=== PATIENT | female | born 1985 | race Caucasian/White ===

== ENCOUNTER 2024-05-04 15:03 | Emergency (ER) | payer BC, SELFPAY ==
[2024-05-04 15:15] VITALS: BP 155/99; PULSE 93; RESP 18; TEMP 36.6; O2SAT 97; BMI 37.3
--- NOTE | 2024-05-04 15:15 | ED_ITS ---
Discharge Plan Disposition Patient Disposition: Home, Self-Care Condition: Good Prescriptions Prescriptions: New azithromycin [Zithromax] 250 mg tablet 250 mg PO UD DOSE PK Qty: 6 0RF Rx Instructions: Take two (2) tablets today, then one (1) tablet days #2 thru #5 benzonatate 100 mg capsule 100 mg PO TIDP PRN (Reason: Cough) Qty: 30 0RF methylprednisolone 4 mg Tablets,Dose Pack 4 mg PO DIRECTED 6 Days Qty: 21 0RF Rx Instructions: Take 1 pack as directed for 6 days No Action lisinopril 40 mg Tablet 40 mg PO DAILY Ozempic 0.25 mg or 0.5 mg(2 mg/1.5 mL) Pen Injector 1 mg SQ WEEKLY Referrals Follow up/Referrals: Provider,Referral, MD [Primary Care Provider] - See instructions Activity Restrictions/Add. Instructions Additional Instructions/Restrictions: Drink plenty of fluids. Take tylenol or ibuprofen for pain or fever. Take the medications as directed. Follow up with your regular doctor. GO TO THE ER FOR ANY WORSENING SYMPTOMS Clinical Impressions Clinical Impression: Sinusitis Instructions Patient Instructions: Sinusitis, DI for Sinusitis Print Language Print Language: Nicarag[place] Discharge ED Provider: Herber Whitman [facility] General Stated complaint: congestion, runny nose Time Seen by Provider: 05/04/24 15:15 History of Present Illness Provider Complaint: She states that for the past 2 weeks she has had sinus congestion and a cough. Related Data Home Medications ?Medication ?Instructions ?Recorded ?Confirmed lisinopril 40 mg tablet 40 mg PO DAILY 05/04/24 05/04/24 semaglutide 0.25 mg or 0.5 mg (2 1 mg SQ WEEKLY 05/04/24 05/04/24 mg/1.5 mL) subcutaneous pen injector (Ozempic) Previous Rx's ?Medication ?Instructions ?Recorded azithromycin 250 mg tablet 250 mg PO UD DOSE PK #6 tabs 05/04/24 (Zithromax) benzonatate 100 mg capsule 100 mg PO TIDP PRN Cough #30 caps 05/04/24 methylprednisolone 4 mg tablets in 4 mg PO DIRECTED 6 days #21 tabs 05/04/24 a dose pack Allergies Allergy/AdvReac Type Severity Reaction Status Date / Time No Known Allergies Allergy Verified 05/04/24 15:17 [facility] Disclaimer: The information contained in this section may have been updated after the patient was seen, as this information can be updated by other users. Medical History (Updated 05/04/24 @ 15:33 by Herber Whitman APRN) HTN (hypertension) Diabetes Social History Smoking Status: Never smoker alcohol intake: never current occupational status: employed Travel in the last 8 weeks: None ROS Obtained: Yes All systems reviewed & no additional complaints except as documented Constitutional Constitutional: Reports poor appetite Eyes Eyes: Reports system reviewed and no additional complaints, except as documented ENT Ears, Nose, Mouth, and Throat: Reports as per HPI Cardiovascular Cardiovascular: Reports system reviewed and no additional complaints, except as documented and Denies chest pain Respiratory Respiratory: Denies shortness of breath, Denies chest congestion, Reports cough, Denies stridor and Denies wheezing Gastrointestinal Gastrointestingal: Reports system reviewed and no additional complaints, except as documented; Denies abdominal pain, diarrhea or vomiting Musculoskeletal Musculoskeletal: Reports system reviewed and no additional complaints, except as documented and Denies arthralgias Integumentary/Breasts Skin/Breast: Reports system reviewed and no additional complaints, except as documented and Denies rash Neurologic Neurologic: Denies paresthesias Allergic/Immunologic Allergic/Immunologic: Denies wheezing Physical Exam General General appearance: alert and in no apparent distress Eye Eye exam: Present normal appearance, PERRL and EOMI ENT ENT exam: Present mucous membranes moist and normal external ear exam Expanded ENT Exam External ear exam: Present normal external inspection TM/Canal exam: Bilateral TM: erythema and bulging Nose exam: Absent sinus tenderness Nasal speculum exam: Bilateral: normal Mouth exam: Present normal external inspection; Absent drooling Teeth exam: Present normal inspection Throat exam: Present tonsillar erythema and tonsillomegaly Neck Neck exam: Present normal inspection, full ROM and trachea midline; Absent tenderness, lymphadenopathy or thyromegaly Chest Chest inspection: Present normal inspection and symmetric chest wall rise; Absent tenderness or rash Respiratory Respiratory exam: Present normal lung sounds bilaterally; Absent respiratory distress, wheezes, stridor or accessory muscle use Cardiovascular Cardiovascular exam: Present regular rate, normal rhythm and normal heart sounds Abdominal Exam Abdominal exam: Present soft; Absent distention, tenderness, guarding, rebound or rigidity Extremities Exam Extremities exam: Present normal inspection, full ROM and normal capillary refill; Absent tenderness or calf tenderness Back Exam Back exam: Present normal inspection and full ROM; Absent tenderness Neurological Exam Neurological exam: Present alert and oriented X3 Psychiatric Psychiatric exam: Present normal affect and normal mood Skin Skin exam: Present warm, dry, intact and normal color Lymphatic Lymphatic Findings: no adenopathy Medical Decision Making Medical Records Medical records reviewed: No I reviewed the patient's medical records. Screening: Per USPSTF and CDC recommendations, given the prevalence of disease in our region, it is our hospital?s policy to screen for HIV and viral Hepatitis for all patients aged 18 and over and those with ongoing risk factors. Evelio Inquiry Pt receiving controlled substance: No
[2024-05-04 15:35] VITALS: BP 155/99; PULSE 93; RESP 18; TEMP 36.6
== END 2024-05-04 15:38 | disposition home or self-care (01) ==
PROVIDERS: Emergency Provider Nurse Practitioner Family
DX: J01.90 Acute sinusitis, unspecified (principal); R05.9 Cough, unspecified; R63.8 Other symptoms and signs concerning food and fluid intake
CPT/HCPCS: 99212; G0381

== ENCOUNTER 2024-09-27 17:51 | Emergency (ER) | payer BC, SELFPAY ==
[2024-09-27 18:20] VITALS: BP 139/94; PULSE 126; RESP 20; TEMP 37.4; O2SAT 99; BMI 33.9
[2024-09-27 18:25] VITALS: BP 139/94; PULSE 75; O2SAT 96
--- NOTE | 2024-09-27 18:28 | HMH.EDGENADL ---
Discharge Plan Disposition Patient Disposition: Home, Self-Care Condition: Good Prescriptions Prescriptions: New cefdinir 300 mg capsule 300 mg PO BID 10 Days Qty: 20 0RF No Action lisinopril 40 mg Tablet 40 mg PO DAILY Referrals Follow up/Referrals: Provider,Referral, MD [Primary Care Provider] - See instructions Activity Restrictions/Add. Instructions Additional Instructions/Restrictions: Follow-up with PCP if any worsening symptoms occur. Please take Tylenol or ibuprofen for pain or fever. If any worsening symptoms occur please return to the ED Clinical Impressions Clinical Impression: Strep pharyngitis Instructions Patient Instructions: DI for Strep Throat Print Language Print Language: Irish Discharge ED Provider: Diego Lloyd General Adult HPI <Le Stahl (ED), SENIOR [employer]EE DEVELOPER - Last Filed: 09/27/24 21:22> General Chief complaint: Upper Respiratory Infection Stated complaint: Sore throat Time Seen by Provider: 09/27/24 17:56 Mode of Arrival: Ambulatory Source of Information: Patient Description of Symptoms (Recalled from ER Triage Doc. by RN): pt presents to the er for sore throat that started 2 days ago and states she has been hot then cold off and on since sore throat started, denies any other symptoms History of Present Illness HPI narrative: This is a 39-year-old female who presents to the ED today for complaint of sore throat that started 2 days ago. She has had fever off and on she believes. She has not actually checked her temperature. She has had no other symptoms. She does have diabetes and is on no medication for her diabetes. She was on Ozempic but is no longer on that. We did check her glucose today and it was 181. Related Data Home Medications ?Medication ?Instructions ?Recorded ?Confirmed lisinopril 40 mg tablet 40 mg PO DAILY 05/04/24 09/27/24 Previous Rx's ?Medication ?Instructions ?Recorded cefdinir 300 mg capsule 300 mg PO BID 10 days #20 caps 09/27/24 Allergies Allergy/AdvReac Type Severity Reaction Status Date / Time No Known Allergies Allergy Verified 09/27/24 18:24 PFSH <Le Stahl (ED), SENIOR J[employer] DEVELOPER - Last Filed: 09/27/24 21:22> PFS Disclaimer: The information contained in this section may have been updated after the patient was seen, as this information can be updated by other users. Medical History (Updated 09/27/24 @ 18:47 by Le Stahl (ED), SENIOR J2EE DEVELOPER) HTN (hypertension) Diabetes Social History Smoking Status: Current every day smoker alcohol intake: never current occupational status: employed Travel in the last 8 weeks: None Have you lived/traveled outside [place] in past 30 days?: No Contact w/someone who lives/traveled outside [place] past 30 days?: No Exposure to someone with infectious disease in past 14 days?: No Do you have a fever (greater than 100.4 F or 38 C)?: No Have you tested positive for COVID-19: No Exposed to someone with COVID-19 in past 14 days?: No Do you have a sore throat?: Yes Do you have a cough?: No Do you have any weakness?: No Do you have any diarrhea?: No Are you experiencing any unusual bleeding?: No Do you have any muscle aches/pain?: No Do you have any abdominal pain?: No Are you experiencing loss of taste or smell?: No <Le Stahl (ED), SENIOR J[employer] DEVELOPER - Last Filed: 09/27/24 21:22> ROS Obtained: Yes Systems reviewed as appropriate & no additional complaints except as documented Constitutional Constitutional: Reports as per HPI Physical Exam <Le Stahl (ED), SENIOR [employer] DEVELOPER - Last Filed: 09/27/24 21:22> General General appearance: alert Head Head exam: atraumatic and normocephalic Eye Eye exam: Present normal appearance, PERRL and EOMI ENT ENT exam: Present normal exam, normal oropharynx and other (Tonsils swollen and with exudate) Neck Neck exam: Present full ROM and trachea midline Respiratory Respiratory exam: Present normal lung sounds bilaterally Cardiovascular Cardiovascular exam: Present regular rate, normal rhythm, normal heart sounds, +S1 and +S2 Extremities Exam Extremities exam: Present full ROM and normal capillary refill Neurological Exam Neurological exam: Present alert and oriented X3 Skin Skin exam: Present warm, dry and intact Medical Decision Making <Le Stahl (ED), SENIOR [employer] DEVELOPER - Last Filed: 09/27/24 21:22> Medical Records Screening: Per USPSTF and CDC recommendations, given the prevalence of disease in our region, it is our hospital?s policy to screen for HIV and viral Hepatitis for all patients aged 18 and over and those with ongoing risk factors. Evelio Inquiry Pt receiving controlled substance: No Evelio was queried for this patient: No Vital Signs: 09/27/24 18:20 09/27/24 18:25 09/27/24 19:19 Temperature 99.4 F 99.6 F Temperature Source Oral Oral Pulse Rate 75 120 H Pulse Rate [Left Radial] 126 H Respiratory Rate 20 20 Blood Pressure 139/94 H 132/92 H Blood Pressure [Right Arm] 139/94 H Blood Pressure Mean [Right Arm] 109 Blood Pressure Source Automatic Cuff Blood Pressure Source [Right Arm] Automatic Cuff Blood Pressure Position Sitting Blood Pressure Position [Right Arm] Sitting 02 Sat by Pulse Oximetry 99 96 Oxygen Delivery Method Room Air Room Air Room Air Lab Data Lab Results 09/27/24 18:16: Group A Strep Rapid Positive A Orders (Tests/Meds): ED MEDICATIONS Discontinued Medications Generic Name Dose Route Start Last Admin Trade Name Freq PRN Reason Stop Dose Admin Cefdinir 300 mg 09/27/24 19:28 09/27/24 19:30 Cefdinir 300mg Capsule PO 09/27/24 19:29 300 mg ONCE ONE Administration ORDERS Category Date Time Status Rapid Strep Scrn Group A [Strep Scrn Group A (Rapid)] Lab 09/27/24 18:16 Completed Stat Medical Decision Narrative: Insert review patient is a 39-year-old female presenting to the emergency department for evaluation of fever, strep symptoms. Patient is hemodynamically stable and nontoxic-appearing upon arrival, afebrile. Differential diagnosis includes strep, flu among others. Workup will be conducted with strep and flu swab. Initial workup included strep swab only as she only wanted to be strep swab. Strep swab was positive today and she was sent home with antibiotics. She was given a dose here. Patient stable for discharge home. She was given instructions for herself and her children. All were safe for discharge home. <Diego Lloyd MD - Last Filed: 09/27/24 21:25> Vital Signs: 09/27/24 18:20 09/27/24 18:25 09/27/24 19:19 Temperature 99.4 F 99.6 F Temperature Source Oral Oral Pulse Rate 75 120 H Pulse Rate [Left Radial] 126 H Respiratory Rate 20 20 Blood Pressure 139/94 H 132/92 H Blood Pressure [Right Arm] 139/94 H Blood Pressure Mean [Right Arm] 109 Blood Pressure Source Automatic Cuff Blood Pressure Source [Right Arm] Automatic Cuff Blood Pressure Position Sitting Blood Pressure Position [Right Arm] Sitting 02 Sat by Pulse Oximetry 99 96 Oxygen Delivery Method Room Air Room Air Room Air Lab Data Lab Results 09/27/24 18:16: Group A Strep Rapid Positive A Orders (Tests/Meds): ED MEDICATIONS Discontinued Medications Generic Name Dose Route Start Last Admin Trade Name Amna PRN Reason Stop Dose Admin Cefdinir 300 mg 09/27/24 19:28 09/27/24 19:30 Cefdinir 300mg Capsule PO 09/27/24 19:29 300 mg ONCE ONE Administration ORDERS Category Date Time Status Rapid Strep Scrn Group A [Strep Scrn Group A (Rapid)] Lab 09/27/24 18:16 Completed Stat Medical Decision Narrative: Insert review patient is a 39-year-old female presenting to the emergency department for evaluation of fever, strep symptoms. Patient is hemodynamically stable and nontoxic-appearing upon arrival, afebrile. Differential diagnosis includes strep, flu among others. Workup will be conducted with strep and flu swab. Initial workup included strep swab only as she only wanted to be strep swab. Strep swab was positive today and she was sent home with antibiotics. She was given a dose here. Patient stable for discharge home. She was given instructions for herself and her children. All were safe for discharge home. LENARD attestation I was consulted by the LENARD, and we discussed the complexity of problems being addressed. I approved the treatment and management plan for this patient's care in the emergency department, thus performing a substantial portion of the medical decision making. Diego Lloyd MD Critical Care <Le Stahl (ED), SENIOR [employer] DEVELOPER - Last Filed: 09/27/24 21:22> Critical Care Time Critical Care Time: No
--- NOTE | 2024-09-27 18:34 | PC.NURSE ---
finger stick glucose 181
[2024-09-27 18:38] LABS: Strep Scrn Group A (Rapid) Positive (Negative)
[2024-09-27 19:19] VITALS: BP 132/92; PULSE 120; RESP 20; TEMP 37.6; O2SAT 99
[2024-09-27] MEDS: CEFDINIR 300MG CAPSULE 300 MG PO (19:30)
== END 2024-09-27 19:35 | disposition home or self-care (01) ==
PROVIDERS: Nurse Practitioner; Emergency Provider Student in an Organized Health Care Education/Training Program
DX: J02.0 Streptococcal pharyngitis (principal); R50.9 Fever, unspecified; R07.0 Pain in throat; E11.9 Type 2 diabetes mellitus without complications; Z72.0 Tobacco use
CPT/HCPCS: 87430; 99283

== ENCOUNTER 2025-03-25 15:20 | Outpatient (CLI) | payer BC, SELFPAY ==
[2025-03-25 20:21] LABS: Hematocrit 43.8 % (37.0-47.0); Hemoglobin 14.4 g/dL (12.2-16.2); Immature Granulocytes % 0.3 %; Mean Corpuscular HGB Conc 32.9 g/dL (31.8-35.4); Mean Corpuscular Hemoglobin 26.9 pg (27.0-31.2); Mean Corpuscular Volume 81.9 fl (81-99); Nucleated Red Blood Cells % 0 %; Platelet Count 390 K/mm3 (142-424); Red Blood Count 5.35 M/mm3 (4.20-5.40); Red Cell Distribution Width-SD 43.1 fL; White Blood Count 9.4 K/mm3 (4.8-10.8)
[2025-03-25 20:55] LABS: Alanine Aminotransferase 46 U/L (12-78); Albumin Level 4.9 g/dl (3.5-5.0); Albumin/Globulin Ratio 1.4 (1.1-1.8); Alkaline Phosphatase 88 U/L (38-126); Anion Gap 15.7 mEq/L (5-15); Aspartate Amino Transferase 41 U/L (14-36); Bilirubin,Total 0.5 mg/dl (0.2-1.3); Blood Urea Nitrogen 10 mg/dl (7-17); Calcium 10.2 mg/dl (8.4-10.2); Carbon Dioxide 25 mmol/L (22.0-30.0); Chloride 99 mmol/L (98-107); Creatinine,Serum 0.60 mg/dl (0.52-1.04); Estimated Glomerular Filt Rate 112 ml/min (>60); GFR (African American) 136 ML/MIN (>60); Globulin 3.6 g/dL (1.3-3.2); Glucose 198 mg/dl (74-100); HDL Cholesterol 41 mg/dl (40-60); Potassium 4.7 mmoL/L (3.5-5.1); Sodium 135 mmol/L (136-145); Total Protein,Serum 8.5 g/dl (6.3-8.2)
[2025-03-25 21:11] LABS: Free T4 (Free Thyroxine) 1.29 ng/dl (0.78-2.19)
[2025-03-25 21:26] LABS: Thyroid Stimulating Hormone 1.07 uIU/mL (0.465-4.68)
[2025-03-25 21:39] LABS: Cholesterol 133 mg/dl (140-200); Triglycerides 87 mg/dl (30-150)
== END 2025-03-25 23:59 | disposition home or self-care (01) ==
LOC: RT 15:21
PROVIDERS: PCP Student in an Organized Health Care Education/Training Program; Visit Provider Student in an Organized Health Care Education/Training Program
DX: I49.1 Atrial premature depolarization (principal); I49.3 Ventricular premature depolarization; I47.10 Supraventricular tachycardia, unspecified; E11.69 Type 2 diabetes mellitus with other specified complication; E66.01 Morbid (severe) obesity due to excess calories; I10 Essential (primary) hypertension; J02.0 Streptococcal pharyngitis; J32.9 Chronic sinusitis, unspecified
CPT/HCPCS: 80053; 80061; 84439; 84443; 85025; 93225; 93227

== ENCOUNTER 2025-04-08 15:15 | Outpatient (CLI) | payer BC, SELFPAY ==
[2025-04-08 21:10] LABS: Anion Gap 17.5 mEq/L (5-15); Blood Urea Nitrogen 13 mg/dl (7-17); Calcium 9.6 mg/dl (8.4-10.2); Carbon Dioxide 23 mmol/L (22.0-30.0); Chloride 102 mmol/L (98-107); Creatinine,Serum 0.60 mg/dl (0.52-1.04); Estimated Glomerular Filt Rate 112 ml/min (>60); GFR (African American) 136 ML/MIN (>60); Glucose 239 mg/dl (74-100); Potassium 4.5 mmoL/L (3.5-5.1); Sodium 138 mmol/L (136-145)
== END 2025-04-08 23:59 ==
LOC: LAB.DROPOF 04-10 00:49
PROVIDERS: PCP Student in an Organized Health Care Education/Training Program; Visit Provider Student in an Organized Health Care Education/Training Program
DX: I10 Essential (primary) hypertension (principal); Z79.899 Other long term (current) drug therapy
CPT/HCPCS: 80048